=== PATIENT | female | born 1945 | race Caucasian/White ===

== ENCOUNTER 2021-06-03 08:44 | Day surgery (SDC) | payer MEDICARE, OTHER ==
[~2021-06-03] VITALS: Ht 154.9 cm; Wt 77.7 kg
[~2021-06-03 08:44] MED LIST: ACET325; ALLERCLEAR10 MG PO; DIVA500ER PO; DYAZIDE 37.5-21 EACH PO; PROP10 PO; Primidone50 MG PO; WARF1 PO; WARF3 PO
[2021-06-03 09:55] LABS: International Normalized Ratio 1.31; Prothrombin Time Results 13.5 Sec (9.7-11.5)
--- NOTE | 2021-06-03 10:37 | NUR ---
06/03/21 [facility] Quentin Chaudhari History, Chart, Medications and Allergies reviewed before start of procedure. Patient confirms NPO status and agrees with scheduled surgery. 3-LEAD EKG REVIEWED WITH PHYSICIAN PRIOR TO START OF PROCEDURE. MONITOR INTACT WITH CONTINUOUS PULSE OXIMETRY AND INTERMITTENT BP. PATIENT DETERMINED TO BE ASA APPROPRIATE FOR PROPOFOL SEDATION PRIOR TO START OF PROCEDURE BY DR. MILNER
--- NOTE | 2021-06-03 11:36 | NUR ---
Discharge instructions reviewed with patient. Patient verbalizes understanding. Copy given to patient to take home.
== END 2021-06-03 11:42 | disposition home or self-care (01) ==
LOC: ORSCMMR 08:44 → ORSCSDS 10:00 → ORSCMMR 11:42
PROVIDERS: Surgery
PROC: 0DBM8ZX Excision of Descending Colon, Via Natural or Artificial Opening Endoscopic, Diagnostic (ICD-10-PCS; principal; 2021-06-03 10:00)
DX: Z12.11 Encounter for screening for malignant neoplasm of colon (principal); D12.4 Benign neoplasm of descending colon; K64.8 Other hemorrhoids; K21.9 Gastro-esophageal reflux disease without esophagitis; E66.9 Obesity, unspecified; Z68.32 Body mass index [BMI] 32.0-32.9, adult; Z79.01 Long term (current) use of anticoagulants; Z79.899 Other long term (current) drug therapy
CPT/HCPCS: 85610; 88305; J2704; J7120

== ENCOUNTER → 2025-05-26 | Outpatient (CLI) | payer MEDICARE, OTHER ==
[~2025-05-26] MED LIST changes: +GABA100 PO; +PROP80ER PO
== END ==
LOC: LAB 16:40 → LAB SHORT 16:40
DX: E55.9 Vitamin D deficiency, unspecified (principal)
CPT/HCPCS: 82306